=== PATIENT | male | born 1965 | race Caucasian/White ===

== ENCOUNTER 2023-03-24 02:03 | Day surgery (SDC) | payer OTHER, MEDICARE, SELFPAY ==
[2023-03-23 15:00] VITALS: BMI 43.3
[2023-03-24] VITALS (9 sets, daily range): BP systolic 126–142; BP diastolic 52–72; PULSE 57–68; RESP 14–16; O2SAT 95–99; BMI 43.0
[2023-03-24 11:16] LABS: Basophils Percent Auto 0.5 % (0.2-1.2); Eosinophils Absolute Auto 0.1 K/mm3 (0-0.3); Eosinophils Percent Auto 1.2 % (0-4.4); Hematocrit 37.4 % (42.0-52.0); Hemoglobin 12.3 g/dL (14.0-18.0); Immature Granulocyte Absolute 0.03 K/mm3 (0.00-0.031); Immature Granulocyte Percent A 0.3 % (0-0.5); Lymphocytes Absolute Auto 1.82 K/mm3 (0.9-3.2); Lymphocytes Percent Auto 21.1 % (18.3-44.2); Mean Corpuscular HGB Conc 32.9 g/dl (32-36); Mean Corpuscular Hemoglobin 30.5 pg (26-34); Mean Corpuscular Volume 92.8 fl (80-100); Mean Platelet Volume 9.6 fl (7.4-10.4); Monocytes Absolute Auto 0.7 K/mm3 (0.1-0.6); Neutrophils Percent Auto 68.9 % (45.5-73.1); Platelet Count Result 255 k/mm3 (150-375); Red Blood Count 4.03 M/mm3 (4.6-6.20); Red Cell Distribution Width 13.7 % (11.5-14.5); White Blood Count 8.6 K/mm3 (4.5-10.0)
--- NOTE | 2023-03-24 11:25 | WPDHPUPDATE1 ---
History and Physical Update Update Date/Time: 03/24/23 11:25 History and Physical has been reviewed, including an updated exam of the patient. There are NO changes in the patient's condition. Augustine Alcala is a 57-year-old male with a CABG x5 [place] [address] Crandall With a HACKETT to the Left anterior descending, SVG to the posterior descending, a sequential SVG to the ramus and OM, and the left radial artery to the diagonal. Mr. Alcala has had progressive angina since February that has not responded well to medical therapy. His stress test showed EF 52%, hypokinesis of the basal inferoseptal segments, a small area of mild to moderate reversible ischemia in the mid anterior and apical segments, large area of aiit-rp-grcxycsy defect in the inferior, inferolateral and inferior apical segment which is partially reversible. He is here for cardiac catheterization and possible PCI. He has a history of vasovagal syncope, particularly with needles, IVs. Risks, benefits, and alternatives have been discussed and questions answered. Reviewed possible risks and complications with patient including breathing problems, bleeding problems, blood vessel problems, unanticipated surgery, allergic reactions, kidney problems, CVA, ND, and among others. Discussed possibility of stenting and possible need for DAPT. Discussed the possibility that if DAPT is interrupted stent thrombosis can occur resulting in heart attack and . Patient understands risks and desires to proceed. Patient agrees to proceed with procedure.
[2023-03-24 11:26] LABS: Anion Gap 6 mmol/L (8-16); Blood Urea Nitrogen 19 mg/dL (9-20); Calcium 8.9 mg/dL (8.4-10.2); Carbon Dioxide 27 mmol/L (22-30); Chloride 103 mmol/L (98-107); Estimated CRCL calculation 118 ml/min; Estimated Glomerular Filt Rate > 60; Glucose 243 mg/dL (65-110); Potassium 4.8 mmol/L (3.4-5.0); Sodium 136 mmol/L (137-145)
--- NOTE | 2023-03-24 11:31 | WPDMODSED ---
Moderate Sedation Note-Pt Data Patient Data Diagnosis: Augustine Alcala is a 57-year-old male with a CABG x5 [place] [address] Crandall ? With a HACKETT to the Left anterior descending, SVG? to the posterior descending, a sequential SVG to the ramus and OM, and the left radial artery to the diagonal.? ? The arteries were described as small and diffusely diseased. Mr. Alcala has had progressive angina? since February that has not responded well to medical therapy.? His stress test showed EF 52%, hypokinesis of the basal inferoseptal segments, a small area of mild to moderate reversible ischemia in the mid anterior and apical segments, large area of krul-no-fuhwuzjs defect in the inferior, inferolateral and inferior apical segment which is partially reversible.? He is here for cardiac catheterization and possible PCI. ? He has a history of vasovagal syncope, particularly with needles, IVs. history of diabetes, insulin pump. History of sleep apnea, Using CPAP at home. Present Complaint: Progressive angina, RIVAS, fatigue not responsive to medical therapy. Procedure to be performed/Plan: Conscious sedation Cardiac catheterization Possible PCI Allergies Allergy/AdvReac Type Severity Reaction Status Date / Time adhesive tape Allergy Unknown Rash Verified 03/24/23 10:23 cephalexin Allergy Unknown Hives Verified 03/24/23 10:23 desipramine Allergy Unknown Weakness Verified 03/24/23 10:23 oxycodone Allergy Unknown Hives Verified 03/24/23 10:23 Owgkdsc-UMZ-ViP Reductase Allergy Muscle Pain Verified 03/24/23 10:31 Inhibitor Home Medications Medication Instructions Recorded Confirmed Type aspirin 81 mg tablet,delayed 81 mg PO DAILY 10/16/19 03/24/23 History release (Aspir-) blood sugar diagnostic (OneTouch #10 ea 10/16/19 12/16/22 History Verio test strips) evolocumab 140 mg/mL subcutaneous 140 mg subcut .q 2 wks 10/16/19 03/24/23 History pen injector (Jeannette Brennan) metoprolol succinate 25 mg 25 mg PO DAILY 10/16/19 03/24/23 History tablet,extended release 24 hr omeprazole 40 mg capsule,delayed 40 mg PO DAILY 10/16/19 03/24/23 History release tramadol 50 mg tablet 50 mg PO Q6H PRN Pain 10/16/19 03/24/23 History losartan 25 mg tablet 25 mg PO DAILY 90 days #90 tabs 04/24/20 03/24/23 Rx flash glucose sensor (FreeStyle #1 ea 08/12/20 12/16/22 History Cole 2 Sensor kit) metformin 500 mg tablet,extended 500 mg PO DAILY 90 days #90 tabs 12/02/21 03/24/23 Rx release 24 hr insulin pump controller (Omnipod 03/10/22 12/16/22 History DASH PDM Kit (Gen 4)) glucagon 1 mg/0.2 mL subcutaneous 1 mg (0.2 mL) subcut ONCE #0.4 mL 12/16/22 03/23/23 Rx auto-injector (Gvoke HypoPen 2-Pack) metoclopramide HCl 10 mg tablet 10 mg PO BID 12/16/22 03/24/23 History (Reglan) acetaminophen 500 mg tablet 1,000 mg PO Q6H PRN Pain 03/23/23 03/23/23 History ascorbic acid (vitamin C) 1,000 mg 1,000 mg PO DAILY 03/23/23 03/24/23 History tablet cholecalciferol (vitamin D3) 25 25 mcg PO DAILY 03/23/23 03/24/23 History mcg (1,000 unit) tablet furosemide 40 mg tablet 40 mg PO PRN PRN Edema 03/23/23 03/24/23 History insulin lispro 100 unit/mL 120 unit subcut DAILY 03/23/23 03/24/23 History subcutaneous solution (Humalog U-100 Insulin) isosorbide mononitrate 30 mg 30 mg PO DAILY 03/23/23 03/24/23 History tablet,extended release 24 hr nitroglycerin 400 mcg/spray 1 spray sublingual Q5M PRN Chest 03/23/23 03/23/23 History translingual Pain Current Medications: Active Medications Sodium Chloride (Normal Saline Iv) 500 mls @ 100 mls/hr IV CONT .Q5H TRUMAN Sedation/Anesthesia: No previous sedation/anesthesia problems (including family history). [facility] Past Medical History Medical History (Updated 03/24/23 @ 11:35 by Niki Price MD) Diabetic polyneuropathy associated with type 1 diabetes mellitus Essential hypertension Pure hypercholesterolemia, unspecified Type 1 diabetes mellitus with hyperglycemia
--- NOTE | 2023-03-24 13:11 | PM.OP ---
Procedure Note - Brief Procedure Note - Brief Date of procedure: 03/24/23 abn stress test, chest pain Procedure performed: Consious sedation Attempted left heart cath Surgeon: Niki Price MD Description of procedure: Left heart cath attempt abandoned due to inability to gain access to the femoral artery Complications: No immediate complications Condition: Stable Disposition: Observation
--- NOTE | 2023-03-24 13:19 | WPDCARDPROC ---
Cardiac Cath Procedure Note Date of procedure:: 03/24/23 Performing physician:: Niki Price MD Indication:: Progressive angina, not responding to medical therapy, abnormal stress test Brief clinical history:: Augustine Alcala is a 57-year-old male with a CABG x5 [place] [address] Aguero ?with a HACKETT to the Left anterior descending, SVG? to the posterior descending, a sequential SVG to the ramus and OM, and the left radial artery to the diagonal.? ? Mr. Alcala has had progressive angina? since February that has not responded well to medical therapy.? His stress test showed EF 52%, hypokinesis of the basal inferoseptal segments, a small area of mild to moderate reversible ischemia in the mid anterior and apical segments, large area of wfso-ak-epykvcqa defect in the inferior, inferolateral and inferior apical segment which is partially reversible.? He is here for cardiac catheterization and possible PCI. ? He has a history of vasovagal syncope, particularly with needles, IVs. H/O DM, insulin pump. Procedure Procedure performed:: conscious sedation Attempted left heart catheterization Sedation/Medication given:: Conscious sedation: The patient has no known prior history of adverse affects of conscious sedation. Oropharynx was clear. The patient is deemed a good candidate for conscious sedation. Conscious sedation began at: 1232 p.m. Conscious sedation ended at: 1305 pm Total conscious sedation time: 33 min Medications: Versed 2 mg, 75 mcg IVP The patient had continuous hemodynamic monitoring, and was also continuously monitored by: Tabatha Ross RN The patient tolerated conscious sedation well. Access site:: right femoral artery Estimated blood loss:: less than 5 cc Procedure note:: Detailed procedure: After informed consent the patient brought to the laborer cook house and the right femoral area was prepped and draped in the usual fashion. The patient received conscious sedation. The femoral head was identified with fluoroscopy. The femoral pulse was very difficult to palpate as it was deep and the patient is obese. Using the micropuncture technique I was able to obtain blood flow but not able to pass the wire. I attempted to locate the femoral artery with vascular ultrasound, but was unable to identify it even at a 6 cm depth. Somewhat more distally I was able to palpate the femoral pulse, punctured it with the micropuncture needle and was able to pass a wire up into the iliac, verified by fluoroscopy. I was able to pass the micropuncture sheath and then the larger wire, but unable to pass the 5 [place] sheath. I dilated the tract with the 5 [place] dilator, but again was unable to pass 5 [place] sheath. The wire appeared to be in the iliac, but the sheath was kinked and curled under the skin. The wire appeared bent and likelyno able to reused. No blood flow was obtained w/ aspiration of the sheath. I decided, at that point, rather than risk any damage to the femoral artery, or attempt left femoral access, (radial artery was not an option due to the BOOKER and harvesting of the left radial for the CABG) that it would be better to abandon the procedure, and perhaps have the procedure done by another circular head saw operator at a different time. The arterial sheath was removed and hemostasis was obtained using local pressure. There was no hematoma and the DP pulse was intact. The patient tolerated the procedure well with no complications. Estimated blood loss was negligible. Conclusion:: Cardiac catheterization was abandoned due to inability to cannulate the femoral artery. Assessment and Plan Assessment and plan (1) Angina of effort: Code(s): I20.8 - Other forms of angina pectoris Status: Acute (2) CAD (coronary artery disease): Code(s): I25.10 - Atherosclerotic heart disease of [place] coronary artery without angina pectoris Status: Acute (3) Abnormal stress test: Code(s): R94.39 - Abnormal result of other c
== END 2023-03-24 17:14 | disposition home or self-care (01) ==
PROVIDERS: PCP Internal Medicine; Visit Provider Internal Medicine Cardiovascular Disease
PROC: 4A023N7 Measurement of Cardiac Sampling and Pressure, Left Heart, Percutaneous Approach (ICD-10-PCS; CPT 93452; principal; 2023-03-24 11:30)
DX: I25.119 Atherosclerotic heart disease of native coronary artery with unspecified angina pectoris (principal); R94.39 Abnormal result of other cardiovascular function study; Z95.1 Presence of aortocoronary bypass graft; R06.09 Other forms of dyspnea; E78.00 Pure hypercholesterolemia, unspecified; E10.42 Type 1 diabetes mellitus with diabetic polyneuropathy; I10 Essential (primary) hypertension; Z79.82 Long term (current) use of aspirin; Z79.84 Long term (current) use of oral hypoglycemic drugs; Z79.4 Long term (current) use of insulin; Z96.41 Presence of insulin pump (external) (internal); Z53.8 Procedure and treatment not carried out for other reasons
CPT/HCPCS: 36415; 80048; 85025; 93458; A9270; C1894; J1644; J2250; J3010; J7040